=== PATIENT | male | born 1960 | race Hispanic/Latino ===

== ENCOUNTER → 2017-10-30 | Day surgery (SDC) | payer OTHER ==
[~2017-10-30] MED LIST: ATORVASTATIN CA20 MG PO; BACTRIM DS TAB1 EACH PO; FARXIGA PO; FENTANYL CITRATE/PF 100MCG/2 ML INJ ONE; JENTADUETO 2.51 EAC2 PO; LANTUS100 UNITS/ SQ; LIDOCAINE HCL 2% LOCAL INJ 5 ML SDV VIAL INJ ONE; MIDAZOLAM HCL 2 MG/2 ML VIAL ONE; PROPOFOL IV EMULSION 10 MG/ML 50 ML VIAL ONE; Z ACTOPLUS MET PO; Z.0.CRESTOR20 MG PO
== END | disposition home or self-care (01) ==
LOC: OR 07:31
PROVIDERS: ATTEND Internal Medicine Gastroenterology
DX: Z12.11 Encounter for screening for malignant neoplasm of colon (principal); K63.5 Polyp of colon; K62.1 Rectal polyp; K57.30 Diverticulosis of large intestine without perforation or abscess without bleeding; K64.8 Other hemorrhoids; E11.9 Type 2 diabetes mellitus without complications; G47.33 Obstructive sleep apnea (adult) (pediatric); B15.9 Hepatitis A without hepatic coma; E66.9 Obesity, unspecified; Z01.810 Encounter for preprocedural cardiovascular examination; Z79.4 Long term (current) use of insulin; Z68.39 Body mass index [BMI] 39.0-39.9, adult
CPT/HCPCS: 36415; 45385; 82948; 93005; J2001; J2250; 45380

== ENCOUNTER → 2019-08-19 | Day surgery (SDC) | payer OTHER ==
[~2019-08-19] MED LIST changes: +CRESTOR10 MG PO; -FENTANYL CITRATE/PF 100MCG/2 ML INJ ONE; +HUMALOG MI100 UNIT/4 SQ; -LIDOCAINE HCL 2% LOCAL INJ 5 ML SDV VIAL INJ ONE; +LISINOPRIL2.5 MG PO; +OZEMPIC SQ
--- OUTSIDE RECORDS SUMMARY | 2019-08-19 05:57 | XMS REPORT ---
[facility] Address [facility] Phone Unavailable Care Team Providers Care Supervisor Sleeping Bag Department Name Role Phone Unavailable Unavailable Payers Payer Name Policy Type Policy Number Effective Date Expiration Date Problems This patient has no known problems. Allergies, Adverse Reactions, Alerts Allergy Name Allergy Type Status Severity Reaction(s) Onset Date Inactive Date Treating Clinician Comments No Known Allergies DA Active U 2013-07-08 00:00:00 Medications This patient has no known medications.
[2019-08-19 09:00] VITALS: BP 130/83
== END | disposition home or self-care (01) ==
LOC: OR 05:47
PROVIDERS: ATTEND Internal Medicine Gastroenterology
DX: K57.92 Diverticulitis of intestine, part unspecified, without perforation or abscess without bleeding (principal); R10.32 Left lower quadrant pain; K59.00 Constipation, unspecified; E11.9 Type 2 diabetes mellitus without complications; E66.9 Obesity, unspecified; Z68.39 Body mass index [BMI] 39.0-39.9, adult; Z01.810 Encounter for preprocedural cardiovascular examination; K57.30 Diverticulosis of large intestine without perforation or abscess without bleeding; Z86.010 Personal history of colon polyps
CPT/HCPCS: 36415; 45378; 82948; 93005; J2250; J2704

== ENCOUNTER → 2022-12-19 | Day surgery (SDC) | payer OTHER ==
[~2022-12-19] MED LIST changes: +ASHWAGANDHA300 MG; +ASPIRIN81 MG PO; +B12; +CEFDINIR300 MG PO; +LIDOCAINE HCL 2% LOCAL INJ 5 ML SDV VIAL INJ ONE; -MIDAZOLAM HCL 2 MG/2 ML VIAL ONE; +POVIDONE IODINE 0.05% 0.05 % ML PO ONE; +PROPOFOL IV EMULSION 10 MG/ML 20 ML VIAL ONE; -PROPOFOL IV EMULSION 10 MG/ML 50 ML VIAL ONE; +VITAMIN C1000 MG PO; +VITAMIN E400 UNI1 PO
[2022-12-19 09:45] VITALS: BP 115/71
== END | disposition home or self-care (01) ==
LOC: OR 06:11
PROVIDERS: ATTEND Internal Medicine Gastroenterology
DX: Z09 Encounter for follow-up examination after completed treatment for conditions other than malignant neoplasm (principal); D12.4 Benign neoplasm of descending colon; K57.30 Diverticulosis of large intestine without perforation or abscess without bleeding; K64.8 Other hemorrhoids; Z71.3 Dietary counseling and surveillance; G47.30 Sleep apnea, unspecified; I20.8 Other forms of angina pectoris; E11.8 Type 2 diabetes mellitus with unspecified complications; I10 Essential (primary) hypertension; E78.00 Pure hypercholesterolemia, unspecified; Z71.82 Exercise counseling; Z79.82 Long term (current) use of aspirin; Z79.4 Long term (current) use of insulin; Z79.85 Long-term (current) use of injectable non-insulin antidiabetic drugs; Z79.899 Other long term (current) drug therapy; Z68.38 Body mass index [BMI] 38.0-38.9, adult
CPT/HCPCS: 36415; 45385; 82948; 88305; J2001; J2704